=== PATIENT | male | born 1995 | race Caucasian/White ===

== ENCOUNTER → 2018-05-26 | Outpatient (REF) | payer BC | LOC: M SFHCLERA 11:01 | PROVIDERS: ATTEND Nurse Practitioner Family | DX: J02.9 Acute pharyngitis, unspecified (principal) ==

== ENCOUNTER → 2019-02-01 | Outpatient (REF) | payer BC ==
[2019-02-01 20:03] LABS: BLOOD UREA NITROGEN 13 MG/DL (7-18); C REACTIVE PROTEIN QUANTITATIV 1.07 MG/DL (0.00-0.30); CREATININE FOR GFR 0.85 MG/DL (0.70-1.30); GLOMERULAR FILTRATION RATE > 60.0 (>60); RHEUMATOID FACTOR QUANT < 10.0 IU/ML (<15.0)
[2019-02-06 14:52] LABS: ANTINUCLEAR ANTIBODIES DIRECT Negative (Negative); HLA-B27 Negative (.)
== END ==
LOC: M LABDRAW1 14:20
PROVIDERS: ATTEND Physician Assistant
DX: M47.896 Other spondylosis, lumbar region (principal)

== ENCOUNTER → 2019-04-10 | Outpatient (REF) | payer BC | LOC: M LABDRAW1 11:40 | PROVIDERS: ATTEND Physical Medicine & Rehabilitation | DX: M48.061 Spinal stenosis, lumbar region without neurogenic claudication (principal) ==

== ENCOUNTER → 2019-06-28 | Outpatient (CLI) | payer BC ==
--- NOTE | 2019-06-28 14:46 | REP ---
Clinical: Sacroiliac pain. Technique: AP, AP angled, and bilateral oblique views of the sacroiliac joints. Findings: Sacroiliac joints appear relatively symmetric and age appropriate. No significant sclerosis or periarticular erosive changes are appreciated. Impression: Essentially normal bilateral sacroiliac joints. Electronically Signed by Brian Correa MD 06/28/2019 02:38 P
== END ==
LOC: M LRY 14:12
PROVIDERS: ATTEND Internal Medicine
DX: M53.3 Sacrococcygeal disorders, not elsewhere classified (principal)

== ENCOUNTER → 2019-07-16 | Outpatient (CLI) | payer BC ==
--- NOTE | 2019-07-16 12:49 | REP ---
MRI PELVIS AND SI JOINTS WITHOUT CONTRAST: HISTORY: Sacroiliac joint pain. Comparison radiographs, June 28, 2019. TECHNIQUE: Axial, oblique coronal, and sagittal imaging planes are utilized. T1- and T2-weighted scans are included with and without fat saturation. MRI FINDINGS: Cortical and medullary bone signal intensity is normal in the bony pelvic ring and proximal femurs. There is no evidence to suggest avascular necrosis. Seminal vesicles, prostate, and urinary bladder are unremarkable. No pelvic mass or adenopathy is seen. Normal-appearing inguinal nodes are noted bilaterally. No abdominal wall defect is observed. No vascular abnormality is seen. There is no evidence of marrow edema or joint fluid in the SI joints on T2-weighted scans. Presacral and retrosacral soft tissues are unremarkable. IMPRESSION: No MR evidence of sacroiliitis. No acute abnormality. Electronically Signed by Valeriy Landers MD 07/16/2019 12:58 P
== END ==
LOC: M RAD 09:30
PROVIDERS: ATTEND Internal Medicine
DX: M53.3 Sacrococcygeal disorders, not elsewhere classified (principal)

== ENCOUNTER → 2019-10-25 | Outpatient (CLI) | payer BC | LOC: M LABSMTC 11:31 | PROVIDERS: ATTEND Physical Medicine & Rehabilitation | DX: Z03.818 Encounter for observation for suspected exposure to other biological agents ruled out (principal); Z11.59 Encounter for screening for other viral diseases ==

== ENCOUNTER → 2020-12-26 | Outpatient (CLI) | payer OTHER | LOC: M LABSMTC 11:03 | PROVIDERS: ATTEND Orthopaedic Surgery Orthopaedic Surgery of the Spine | DX: Z20.828 Contact with and (suspected) exposure to other viral communicable diseases (principal); Z11.59 Encounter for screening for other viral diseases ==

== ENCOUNTER → 2024-03-06 | Outpatient (REF) | payer OTHER ==
[2024-03-06 12:59] LABS: ALBUMIN 3.8 G/DL (3.2-5.2); ALKALINE PHOSPHATASE 103 U/L (40-129); ALT/SGPT 58 U/L (7.0-40); AST/SGOT 30 U/L (<34); BILIRUBIN,TOTAL 0.6 MG/DL (0.3-1.2); BLOOD UREA NITROGEN 10 MG/DL (9-23); CALCIUM LEVEL 9.4 MG/DL (8.5-10.1); CARBON DIOXIDE LEVEL 27 MMOL/L (20-31); CHLORIDE LEVEL 109 MMOL/L (98-107); CHOLESTEROL LEVEL 175 MG/DL (<200); CHOLESTEROL RISK RATIO 5.23 (<5); CREATININE FOR GFR 0.79 MG/DL (0.70-1.30); GLOMERULAR FILTRATION RATE > 60.0 (>60); GLUCOSE, FASTING 97 MG/DL (60-100); HDL CHOLESTEROL 33.4 MG/DL (>40); LDL CHOLESTEROL 108.4 MG/DL (<100); NON-HDL-C 141.6 MG/DL; POTASSIUM SERUM 4.4 MMOL/L (3.5-5.1); SODIUM LEVEL 141 MMOL/L (136-145); TOTAL PROTEIN 7.1 G/DL (5.7-8.2); TRIGLYCERIDES LEVEL 166 MG/DL (<150)
[2024-03-06 13:03] LABS: THYROID STIMULATING HORMONE 1.251 uIU/ML (0.55-4.78)
[2024-03-06 13:04] LABS: FREE T4 1.21 NG/DL (0.89-1.76)
== END ==
LOC: M LAB REF 12:09
PROVIDERS: ATTEND Family Medicine Addiction Medicine
DX: K76.0 Fatty (change of) liver, not elsewhere classified (principal)

== ENCOUNTER → 2025-03-26 | Outpatient (REF) | payer OTHER ==
[2025-03-26 14:36] LABS: ALT/SGPT 83 U/L (7.0-40); AST/SGOT 50 U/L (<34); CALCIUM LEVEL 9.2 MG/DL (8.5-10.1); CARBON DIOXIDE LEVEL 26 MMOL/L (20-31); CHLORIDE LEVEL 106 MMOL/L (98-107); CHOLESTEROL LEVEL 147 MG/DL (<200); CHOLESTEROL RISK RATIO 4.68 (<5); CREATININE FOR GFR 0.86 MG/DL (0.70-1.30); GLOMERULAR FILTRATION RATE > 90.0 (>60); LDL CHOLESTEROL 68.8 MG/DL (<100); NON-HDL-C 115.6 MG/DL; POTASSIUM SERUM 4.3 MMOL/L (3.5-5.1); SODIUM LEVEL 141 MMOL/L (136-145); TRIGLYCERIDES LEVEL 234 MG/DL (<150)
== END ==
LOC: M LAB REF 12:47
PROVIDERS: ATTEND Family Medicine Addiction Medicine
DX: E66.01 Morbid (severe) obesity due to excess calories (principal); Z68.43 Body mass index [BMI] 50.0-59.9, adult